=== PATIENT | male | born 1955 | race Caucasian/White ===

== ENCOUNTER → 2016-06-21 | Outpatient (CLI) | payer OTHER ==
[~2016-06-21] MED LIST: AMBIEN10 MG PO; CATAPRES 0.1MG0.1 MG PO; DOXYCYCLINE MO100 MG PO; FERROUS SULFAT325 M2 PO; KEFLEX500 MG PO; LANTUS100 UNIT/1 SQ; LASIX40 MG PO; LISINOPRIL40 MG PO; LORCET PLUS 7.1 EACH PO; NORVASC 5 MG TAB5 MG PO; POTASSIUM99 MG PO
[2016-06-21 15:03] LABS: HEMOGLOBIN 9.9 gm/dl (14.0-17.5); RED BLOOD COUNT 3.22 M/UL (4.20-5.50); WHITE BLOOD COUNT 3.2 K/UL (4.5-11.0)
== END ==
LOC: OPSV 13:41
PROVIDERS: Podiatrist Foot & Ankle Surgery
DX: E11.42 Type 2 diabetes mellitus with diabetic polyneuropathy (principal); L97.512 Non-pressure chronic ulcer of other part of right foot with fat layer exposed
CPT/HCPCS: 15271; 36415; 85025; Q4132

== ENCOUNTER 2016-08-02 13:18 | Inpatient (IN) | payer OTHER ==
[~2016-08-02] VITALS: Ht 188 cm; Wt 90.7 kg
[2016-08-02] MEDS ORDERED: LISINOPRIL40 MG PO (15:11)
[2016-08-02] MEDS ORDERED: CATAPRES 0.1MG0.1 MG PO (15:11)
[2016-08-02] MEDS ORDERED: LANTUS100 UNIT/1 SQ (15:12)
[2016-08-02] MEDS ORDERED: AMBIEN10 MG PO (15:12)
[2016-08-02] MEDS ORDERED: LASIX40 MG PO (15:13)
[2016-08-02 17:19] LABS: HEMOGLOBIN 11.3 gm/dl (14.0-17.5); RED BLOOD COUNT 3.76 M/UL (4.20-5.50); WHITE BLOOD COUNT 3.9 K/UL (4.5-11.0)
[2016-08-02 17:33] LABS: BUN/CREATININE RATIO 23 (0-10)
[2016-08-03 05:10] LABS: WHITE BLOOD COUNT 3.1 K/UL (4.5-11.0)
[2016-08-03 05:11] LABS: RED BLOOD COUNT 3.38 M/UL (4.20-5.50)
[2016-08-03 05:24] LABS: BUN/CREATININE RATIO 20 (0-10)
[2016-08-04 06:52] LABS: RED BLOOD COUNT 3.36 M/UL (4.20-5.50); WHITE BLOOD COUNT 3.4 K/UL (4.5-11.0)
[2016-08-04 07:13] LABS: BUN/CREATININE RATIO 21 (0-10)
[2016-08-05 05:22] LABS: HEMOGLOBIN 10.3 gm/dl (14.0-17.5); RED BLOOD COUNT 3.42 M/UL (4.20-5.50); WHITE BLOOD COUNT 3.4 K/UL (4.5-11.0)
[2016-08-05 05:27] LABS: BUN/CREATININE RATIO 20 (0-10)
[2016-08-07] MEDS ORDERED: KEFLEX500 MG PO (17:52)
[2016-12-10] MEDS ORDERED: FERROUS SULFAT325 M2 PO (12:07)
[2016-12-10] MEDS ORDERED: DOXYCYCLINE MO100 MG PO (18:40)
== END 2016-08-07 18:40 | disposition home or self-care (01) | DRG 623 ==
LOC: M/S 13:51
PROVIDERS: Physician Assistant; ADMIT Internal Medicine
PROC: 0JBQ0ZZ Excision of Right Foot Subcutaneous Tissue and Fascia, Open Approach (ICD-10-PCS; principal; 2016-08-07)
DX: E11.621 Type 2 diabetes mellitus with foot ulcer (principal); M86.8X7 Other osteomyelitis, ankle and foot; D61.818 Other pancytopenia; C22.9 Malignant neoplasm of liver, not specified as primary or secondary; I47.1 Supraventricular tachycardia; L97.519 Non-pressure chronic ulcer of other part of right foot with unspecified severity; E11.69 Type 2 diabetes mellitus with other specified complication; E11.40 Type 2 diabetes mellitus with diabetic neuropathy, unspecified; B18.2 Chronic viral hepatitis C; I10 Essential (primary) hypertension; E83.42 Hypomagnesemia; B95.61 Methicillin susceptible Staphylococcus aureus infection as the cause of diseases classified elsewhere; F17.210 Nicotine dependence, cigarettes, uncomplicated; Z79.4 Long term (current) use of insulin; Z92.3 Personal history of irradiation; Z79.899 Other long term (current) drug therapy; Z88.3 Allergy status to other anti-infective agents; Z88.0 Allergy status to penicillin; Z98.890 Other specified postprocedural states; Z83.3 Family history of diabetes mellitus
CPT/HCPCS: ECHO; 36415; 73718; 80048; 80053; 81001; 82550; 82553; 82962; 83036; 83735; 84439; 84443; 84484; 85025; 85027; 85610; 85730; 87040; 87070; 87077; 87186; 87205; 93005; 93306; J1335; J1817; J7030; J7050

== ENCOUNTER → 2016-08-02 | Outpatient (CLI) | payer OTHER | LOC: US 12:29 | DX: N63 Unspecified lump in breast (principal); N62 Hypertrophy of breast | CPT/HCPCS: 76641-LT; 76641-RT ==

== ENCOUNTER 2016-11-25 08:27 | Inpatient (IN) | payer OTHER ==
[~2016-11-25] VITALS: Ht 188 cm; Wt 95.3 kg
[~2016-11-25 08:27] MED LIST changes: -DOXYCYCLINE MO100 MG PO; -FERROUS SULFAT325 M2 PO; -LORCET PLUS 7.1 EACH PO; -NORVASC 5 MG TAB5 MG PO; -POTASSIUM99 MG PO
[2016-11-25 09:52] LABS: HEMOGLOBIN 11.1 gm/dl (14.0-17.5); RED BLOOD COUNT 3.63 M/UL (4.20-5.50); WHITE BLOOD COUNT 6.2 K/UL (4.5-11.0)
[2016-11-25 10:13] LABS: BUN/CREATININE RATIO 26 (0-10)
[2016-11-25] MEDS ORDERED: POTASSIUM99 MG PO (12:07)
[2016-11-25] MEDS ORDERED: NORVASC 5 MG TAB5 MG PO (12:16)
[2016-11-26 05:06] LABS: HEMOGLOBIN 9.6 gm/dl (14.0-17.5); WHITE BLOOD COUNT 5.1 K/UL (4.5-11.0)
[2016-11-26 05:11] LABS: RED BLOOD COUNT 3.23 M/UL (4.20-5.50)
[2016-11-26 05:17] LABS: BUN/CREATININE RATIO 24 (0-10)
[2016-11-27 05:24] LABS: BUN/CREATININE RATIO 24 (0-10)
[2016-11-29 06:27] LABS: HEMOGLOBIN 9.2 gm/dl (14.0-17.5); RED BLOOD COUNT 3.09 M/UL (4.20-5.50); WHITE BLOOD COUNT 4.5 K/UL (4.5-11.0)
[2016-11-29 06:46] LABS: BUN/CREATININE RATIO 30 (0-10)
[2016-11-30 05:12] LABS: HEMOGLOBIN 9.3 gm/dl (14.0-17.5); RED BLOOD COUNT 3.14 M/UL (4.20-5.50); WHITE BLOOD COUNT 5.4 K/UL (4.5-11.0)
[2016-11-30 05:37] LABS: BUN/CREATININE RATIO 27 (0-10)
[2016-12-01 19:33] LABS: HEMOGLOBIN 8.4 gm/dl (14.0-17.5)
[2016-12-02 05:01] LABS: HEMOGLOBIN 7.3 gm/dl (14.0-17.5); WHITE BLOOD COUNT 4.5 K/UL (4.5-11.0)
[2016-12-02 05:02] LABS: RED BLOOD COUNT 2.42 M/UL (4.20-5.50)
[2016-12-02 05:14] LABS: BUN/CREATININE RATIO 27 (0-10)
[2016-12-02 16:04] LABS: HEMOGLOBIN 9.2 gm/dl (14.0-17.5)
[2016-12-03 04:29] LABS: HEMOGLOBIN 8.6 gm/dl (14.0-17.5); RED BLOOD COUNT 2.89 M/UL (4.20-5.50); WHITE BLOOD COUNT 5.2 K/UL (4.5-11.0)
[2016-12-04] MEDS ORDERED: LORCET PLUS 7.1 EACH PO (18:41)
[2016-12-10] MEDS ORDERED: FERROUS SULFAT325 M2 PO (12:07)
[2016-12-10] MEDS ORDERED: DOXYCYCLINE MO100 MG PO (18:40)
== END 2016-12-04 19:50 | disposition home or self-care (01) | DRG 616 ==
LOC: ER1 08:27 → M/S 11:07 → ZEROF 11:07 → M/S 13:03
PROVIDERS: Internal Medicine; Internal Medicine Infectious Disease; Nurse Practitioner Family; Podiatrist Foot & Ankle Surgery; ADMIT Internal Medicine
PROC: 0Y6P0Z0 Detachment at Right 1st Toe, Complete, Open Approach (ICD-10-PCS; principal; 2016-11-29 13:15)
PROC: 0Y990ZX Drainage of Right Lower Extremity, Open Approach, Diagnostic (ICD-10-PCS; 2016-12-01)
PROC: 30233H1 Transfusion of Nonautologous Whole Blood into Peripheral Vein, Percutaneous Approach (ICD-10-PCS; 2016-12-02)
DX: E11.69 Type 2 diabetes mellitus with other specified complication (principal); A48.0 Gas gangrene; M86.9 Osteomyelitis, unspecified; C22.8 Malignant neoplasm of liver, primary, unspecified as to type; E11.52 Type 2 diabetes mellitus with diabetic peripheral angiopathy with gangrene; D62 Acute posthemorrhagic anemia; M96.840 Postprocedural hematoma of a musculoskeletal structure following a musculoskeletal system procedure; E11.40 Type 2 diabetes mellitus with diabetic neuropathy, unspecified; I10 Essential (primary) hypertension; B19.20 Unspecified viral hepatitis C without hepatic coma; E11.621 Type 2 diabetes mellitus with foot ulcer; L97.519 Non-pressure chronic ulcer of other part of right foot with unspecified severity; D69.6 Thrombocytopenia, unspecified; F17.290 Nicotine dependence, other tobacco product, uncomplicated; Z88.1 Allergy status to other antibiotic agents; Z88.3 Allergy status to other anti-infective agents; Z88.0 Allergy status to penicillin; Z83.3 Family history of diabetes mellitus; Z79.2 Long term (current) use of antibiotics; Z79.4 Long term (current) use of insulin; E11.65 Type 2 diabetes mellitus with hyperglycemia; B96.1 Klebsiella pneumoniae [K. pneumoniae] as the cause of diseases classified elsewhere; B96.5 Pseudomonas (aeruginosa) (mallei) (pseudomallei) as the cause of diseases classified elsewhere; B95.2 Enterococcus as the cause of diseases classified elsewhere; Z91.19 Patient's noncompliance with other medical treatment and regimen; Y83.8 Other surgical procedures as the cause of abnormal reaction of the patient, or of later complication, without mention of misadventure at the time of the procedure; Y92.230 Patient room in hospital as the place of occurrence of the external cause
CPT/HCPCS: 36415; 36430; 71020; 73630; 73718; 80048; 80053; 81001; 82962; 83605; 85014; 85018; 85025; 85027; 85730; 86140; 86850; 86900; 86901; 86920; 87040; 87070; 87075; 87077; 87086; 87186; 87205; 93005; 96374; 99284; J0692; J1335; J1650; J1817; J2250; J2270; J2370; J2710; J3010; J7030; J7050; J7120; P9016; Q2039